=== PATIENT | female | born 1980 | race African-American/Black ===

== ENCOUNTER 2024-09-02 11:16 | Emergency (ER) | payer OTHER, SELFPAY ==
[2024-09-02 11:33] VITALS: BP 134/93; PULSE 88; RESP 18; TEMP 36.7; O2SAT 99
[2024-09-02 12:01] LABS: BEDSIDEPREGUCG Negative (Negative)
[2024-09-02 12:18] LABS: Add Urine Microscopic? YES; Appearance Urine Cloudy (Clear); Glucose Urine UA 3+ mg/dL (Negative); Leukocyte Esterase Ur 1+ LEU/UL (Negative); Need Manual Microscopic Reviewed; Nitrate Urine Negative (Negative); Specific Grav Ur 1.017 (1.001-1.035)
--- NOTE | 2024-09-02 12:40 | ED.GENADULT ---
HPI - General Adult General Chief complaint: Urogenital-Female Stated complaint: kidney infection, I need IV antibiotics Time Seen by Provider: 09/02/24 12:05 History of Present Illness HPI narrative: 44-year-old female presenting to the emergency department for evaluation for urinary symptoms. 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 Patient does have history pyelonephritis. Patient reports of last few days she has had urinary symptoms with low-grade fever. Patient did present to the urgent care and was referred to the emergency department for IV antibiotics. Related Data Allergies Allergy/AdvReac Type Severity Reaction Status Date / Time adhesive tape Allergy Rash Verified 09/02/24 12:12 latex Allergy Rash Verified 09/02/24 12:12 Review of Systems Review of Systems: All systems reviewed & are unremarkable except as noted in HPI and below Exam Narrative: APPEARANCE: Well appearing, no pain, no distress, well-nourished. HEAD: normocephalic, atraumatic. EYES: PERRLA/EOMI, conjunctivae clear. NOSE: Normal no drainage EARS:TMS clear with good light reflex. THROAT: Pharynx clear, no exudate. NECK: Supple. No adenopathy, no masses. RESPIRATORY: Airway patent, respirations nonlabored. Clear to auscultation bilaterally, no rales, rhonchi, wheezing. CARDIOVASCULAR: Regular rate and rhythm without murmurs rubs or gallops. ABDOMINAL: Bilateral CVA tenderness MUSCULOSKELETAL: Moves all extremities. Strength/ROM intact, No edema, No calf tenderness. NEURO: Alert. Cranial nerves II through XII intact. Good gait. Good coordination SKIN: Warm, dry. Normal Color PSYCHIATRIC: Normal affect/mood. Course Vital Signs Vital signs: Vital Signs Temperature 98.0 F 09/02/24 11:33 Pulse Rate 88 09/02/24 11:33 Respiratory Rate 18 09/02/24 11:33 Blood Pressure 134/93 H 09/02/24 11:33 Pulse Oximetry 99 09/02/24 11:33 Oxygen Delivery Room Air 09/02/24 11:33 Temperature 98.0 F 09/02/24 11:33 Pulse Rate 91 09/02/24 15:27 Respiratory Rate 16 09/02/24 15:27 Blood Pressure 117/68 09/02/24 15:27 Pulse Oximetry 100 09/02/24 15:27 Oxygen Delivery Room Air 09/02/24 11:33 Medical Decision Making [facility] Narrative Medical decision making narrative: 44-year-old female presents emergency department for evaluation for urinary symptoms. Urine is significant for urinary tract infection. Patient is currently afebrile with no leukocytosis hemoglobin of 10.9, no baseline values are to follow. Patient is not have an elevated lactic acid. Patient was treated with a L of lactated Ringer's along with 1 g of IV Rocephin. Patient does not appear to have pyelonephritis. Patient will be discharged home with p.o. antibiotics. Differential Diagnosis Differential Diagnosis: Urinary tract infection, pyelonephritis, dysuria Vital Signs Vital Signs: Vital Signs Temperature 98.0 F 09/02/24 11:33 Pulse Rate 88 09/02/24 11:33 Respiratory Rate 18 09/02/24 11:33 Blood Pressure 134/93 H 09/02/24 11:33 Pulse Oximetry 99 09/02/24 11:33 Oxygen Delivery Room Air 09/02/24 11:33 Temperature 98.0 F 09/02/24 11:33 Pulse Rate 91 09/02/24 15:27 Respiratory Rate 16 09/02/24 15:27 Blood Pressure 117/68 09/02/24 15:27 Pulse Oximetry 100 09/02/24 15:27 Oxygen Delivery Room Air 09/02/24 11:33 Lab Data Lab results reviewed: Yes I reviewed the patient's lab results. 09/02/24 14:10 09/02/24 14:10 Labs: Lab Results 09/02/24 09/02/24 09/02/24 Range/Units 11:56 11:58 14:10 WBC 8.0 (4.5-10.0) K/mm3 RBC 3.72 L (4.2-5.4) M/mm3 Hgb 10.9 L (12.0-15.0) g/dL Hct 32.2 L (37.0-47.0) % MCV 86.6 (80-100) fl MCH 29.3 (26-34) pg MCHC 33.9 (32-36) g/dl RDW 12.5 (11.5-14.5) % Plt Count 176 (150-375) k/mm3 MPV 10.4 (7.4-10.4) fl Immature Gran % (Auto) 0.5 (0-0.5) % Neut % (Auto) 58.0 (45.5-73.1) % Lymph % (Auto) 25.1 (18.3-44.2) % Larimer % (Auto) 15.2 H (2.6-8.5) % Eos % (Auto) 0.8 (0-4.4) % Baso % (Auto) 0.4 (0.2-1.2) % Lymph # (Auto) 2.00 (0.9-3.2) K/mm3 Larimer # (Auto) 1.2 H (0.1-0.6) K/mm3 Eos # (Auto) 0.1 (0-0.3) K/mm3 Baso # (Auto) 0.0 (0.0-0.1) K/mm3 Abs Immat Gran (auto) 0.04 H (0.00-0.031) K/mm3 Absolute Neuts (auto) 4.6 (1.3-6.7) K/mm3 Absolute Nucleated RBC 0.000 (0.0-0.012) K/mm3 Nucleated RBC % 0.0 (0.0-0.2) % Sodium 129 L (137-145) mmol/L Potassium 3.6 (3.4-5.0) mmol/L Chloride 100 (98-107) mmol/L Carbon Dioxide 24 (22-30) mmol/L Anion Gap 5 (4-12) mmol/L BUN 16 (7-17) mg/dL Creatinine 1.23 H (0.7-1.0) mg/dL Estim Creat Clear Calc 60 ml/min Estimated GFR 47 L (59 - ) Glucose 122 H (65-110) mg/dL Lactic Acid 1.4 (0.7-2.0) mmol/L Calcium 8.4 (8.4-10.2) mg/dL Total Bilirubin 0.3 (0.2-1.3) mg/dL AST 30 (14-36) U/L ALT 47 H (6-35) U/L Alkaline Phosphatase 193 H (38-126) U/L Total Protein 6.6 (6.3-8.2) g/dL Albumin 3.1 L (3.5-5.1) g/dL Urine Color Yellow (Yellow) Urine Appearance Cloudy H (Clear) Urine pH 5.5 (5.0-9.0) Ur Specific Shipman 1.017 (1.001-1.035) Urine Protein 4+ H (Negative) mg/dL Urine Glucose (UA) 3+ H (Negative) mg/dL Urine Ketones 1+ H (Negative) mg/dL Ur Blood (Man) 2+ H (Negative) Urine Nitrate Negative (Negative) Urine Bilirubin Negative (Negative) Urine Urobilinogen 1.0 (<2.0) mg/dL Add Ur Microanalysis Reviewed Leukocyte Esterase Rfl 1+ H (Negative) KEKE/UL Urine RBC 11-20 H (0-2) /hpf Urine WBC 51-100 H (0-3) /hpf Urine WBC Clumps Present H (None) /HPF Ur Squamous Epith Cells Moderate (Few) /hpf Urine Bacteria None seen /hpf Urine Casts 11-20 Hyaline Casts Present (None) /lpf POC Urine HCG, Qual Negative (Negative) Discharge Plan Discharge Clinical Impression: Urinary tract infection Patient Disposition: Home Condition: Stable Instructions: Antibiotic Form, Urinary Tract Infection in Women (ED) Additional Instructions: Antibiotic as directed until completed. Zofran as needed for nausea control. Have close follow-up with your primary care physician. If you have any worsening symptoms then please call or return to the emergency department. Patient Language: Italian Prescriptions: New phenazopyridine [Pyridium] 100 mg tablet 100 mg PO TID PRN (Reason: pain) Qty: 6 0RF cephalexin 500 mg capsule 500 mg PO Q6H 7 Days Qty: 28 0RF ondansetron 4 mg tablet,disintegrating 4 mg PO Q8H PRN (Reason: nausea and vomiting) Qty: 14 0RF Follow-up/Referrals: PHYSICIAN NOT ON STAFF,NONSTAFF [Non-Staff] -
--- OUTSIDE RECORDS SUMMARY | 2024-09-02 12:58 | XMS_ITS | Referral Summary ---
Author Organization [facility] Address [address] [place] [id number] Care Team Providers Care Skeiner Name Role Phone Unknown, Notinfile Primary Care Provider Unavail able Encounters Date Type Department Care Team Description 09/02/2024 12:30 PM CDT Office Visit [facility] at [address] [phone] Marilyn Browne NP Right flank pain (Primary Dx); History of pyelonephritis; Fever, unspecified fever cause from Last 3 Months Allergies Active Allergy Reactions Criticality Noted Date Comments Adhesive Other (See comments),Rash Medium 05/31/2016 Reaction: Adhesive Tape-Silicones Gel Other (See comments) 09/02/2024 Reaction: Hydrocodone-Acetaminophen Latex Medications aspirin 81 mg enteric coated tablet 7 Active insulin aspart (NovoLOG) 100 unit/mL vial for injection Inject 10 units 3 times a day by subcutaneous route before meals for 90 days. Active insulin glargine (TOUJEO) 300 unit/mL (1.5 mL) pen for injection Inject 25 units every day by subcutaneous route at bedtime for 90 days. Active insulin lispro (HumaLOG, ADMELOG) 100 unit/mL vial for injection Inject 20 Units under the skin 3 (three) times a day with meals Active metoprolol (LOPRESSOR) 100 mg tablet Take 1 tablet (100 mg total) by mouth 2 (two) times a day 5 Active phentermine (ADIPEX-P) 37.5 mg tablet Take 1 tablet (37.5 mg total) by mouth daily before breakfast 4 Active hydroCHLOROthia zide (HYDRODIURIL) 25 mg tablet Take 1 tablet (25 mg total) by mouth daily 3 Active Active Problems Problem Noted Date Diagnosed Date Diabetes mellitus during , antepartum 0 09/02/2024 Bilateral lower extremity edema 06/25/2024 Elevated cholesterol 06/07/2023 Edema 05/10/2022 Severe obesity (BMI 35.0-39.9) with comorbidity 04/28/2020 Obesity (BMI 30.0-34.9) 01/31/2019 History of acute anterior wall UT 12/13/2016 Inappropriate sinus tachycardia 12/13/2016 Ischemic cardiomyopathy 12/13/2016 SOB (shortness of breath) 12/13/2016 IUD (intrauterine device) in place 12/12/2016 Overview (09/02/2024): Mirena Placed 12/12/16 Chronic systolic congestive heart failure 2016 Sepsis due to Escherichia coli 10/26/2016 Overview (09/02/2024): source Elevated troponin 10/25/2016 Pericardial effusion, acute 10/25/2016 Spontaneous dissection of coronary artery 2016 Positive GBS test 09/23/2016 with uncertain viability 017 Herpes simplex virus (HSV) infection 02/15/2016 Sickle cell trait 02/15/2016 Normal 02/15/2016 Vitamin D deficiency disease 08/03/2012 Unspecified inflammation of eyelid 02/13/2012 Diabetes mellitus 02/13/2012 Social History Tobacco Use Types Packs/Day Years Used Date Smoking Tobacco: Never Comments Unknown Sex and Gender Information Value Date Recorded Sex Assigned at Not on file 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 Gender Identity Not on file Sexual Orientation Not on file Last Filed Vital Signs Vital Sign Reading Time Taken Comments Blood Pressure 133/74 09/02/2024 10:36 AM CDT Pulse - - Temperature 36.8 C (98.3 F) 09/02/2024 10:36 AM CDT Respiratory Rate 21 09/02/2024 10:36 AM CDT Oxygen Saturation 99% 09/02/2024 10:36 AM CDT Inhaled Oxygen Concentration - - Weight 90.7 kg (200 lb) 09/02/2024 10:36 AM CDT Height 167.6 cm (5' 6) 09/02/2024 10:36 AM CDT Body Mass Index 32.28 09/02/2024 10:36 AM CDT Plan of Treatment Not on file Insurance [employer] Address: [facility] [id number] [phone] Care Teams Skeiner Relationship Specialty Start Date End Date Unknown, Notinfile PCP - General 09/02/24
--- OUTSIDE RECORDS SUMMARY | 2024-09-02 12:58 | XMS_ITS | Encounter Summary ---
Author Organization [facility] Healthcare Address [address] [place] [address] Care Team Providers Care Emu Farmer Name Role Phone Unknown, Notinfile Primary Care Provider Unavail able Reason for Visit * Reason Comments Urinary Problem Patient here for c/o possible UTI or kidney infection Encounter Details Date Type Department Care Team (Late st Contact Info) Description 09/02/2024 12:30 PM CDT Office Visit [facility] at [address] [phone] Marilyn Browne NP [address] [place] [address] [address] [place], [place] [id number] Right flank pain (Primary Dx); History of pyelonephritis; Fever, unspecified fever cause Social History Tobacco Use Types Packs/Day Years Used Date Smoking Tobacco: Never Comments Unknown Sex and Gender Information Value Date Recorded Sex Assigned at Not on file 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 hydroCHLOROthiaz tyler (HYDRODIURIL) 25 mg tablet Take 1 tablet (25 mg total) by mouth daily 05/03/2022 phentermine (ADIPEX-P) 37.5 mg tablet Take 1 tablet (37.5 mg total) by mouth daily before breakfast 05/23/2023 metoprolol (LOPRESSOR) 100 mg tablet Take 1 tablet (100 mg total) by mouth 2 (two) times a day 08/19/2024 insulin lispro (HumaLOG, ADMELOG) 100 unit/mL vial for injection Inject 20 Units under the skin 3 (three) times a day with meals insulin glargine (TOUJEO) 300 unit/mL (1.5 mL) pen for injection Inject 25 units every day by subcutaneous route at bedtime for 90 days. insulin aspart (NovoLOG) 100 unit/mL vial for injection Inject 10 units 3 times a day by subcutaneous route before meals for 90 days. aspirin 81 mg enteric coated tablet 10/29/2016 added in this encounter Care Teams Emu Farmer Relationship Specialty Start Date End Date Unknown, Notinfile PCP - General 09/02/24 documented as of this encounter
--- OUTSIDE RECORDS SUMMARY | 2024-09-02 12:58 | XMS_ITS | Clinical Summary ---
Author Organization [facility] Address [address] [place] [address] Phone Care Team Providers Care Museum Guide Name Role Phone Adrian Hadley MD Primary Care Provider [phone] Allergies Active Allergy Reactions Criticality Noted Date Comments Adhesive Rash Low 05/31/2016 Hydrocodone-Acetaminophen Unknown 02/19/2019 Latex Rash Low 05/31/2016 Medications lancets (ULTRA THIN II LANCETS) 30 gauge 1 Each by Misc.(Non-Drug; Combo Route) route daily Lancet ultra 2 per patient request. 30 Each 6 10/01/19 17 Active insulin detemir (LEVEMIR) 100 unit/mL pen syringe Inject 50 Units by subcutaneous injection 2 times daily. Active insulin lispro (HumaLOG) 100 unit/mL vial Inject 20 Units by subcutaneous injection 3 times daily with meals. Active aspirin (ECOTRIN EC) 81 mg Tablet, Delayed Release (E.C.) Take 1 Tablet (81 mg) by mouth daily. 30 Tablet 7 3:01 PM CDT 10/30/19 17 Active hydroCHLOROthi azide 25 mg tabletIndicati ons:Edema, unspecified type Take 1 Tablet (25 mg) by mouth daily. 90 Tablet 3 05/04/19 23 Active Additional Information Patient taking differently:25 mg Oral DAILY,As needed, Reported on 06/18/2024 phentermine (ADIPEX P) 37.5 mg tablet Take 37.5 mg by mouth daily before breakfast. 05/23/19 24 Active metoprolol tartrate (LOPRESSOR) 100 mg tabletIndicati ons:Inappropri ate sinus tachycardia TAKE 1 TABLET(100 MG) BY MOUTH TWICE DAILY 180 Tablet 1 08/20/19 25 Active metoprolol tartrate (LOPRESSOR) 100 mg tabletIndicati ons:Inappropri ate sinus tachycardia TAKE 1 TABLET(100 MG) BY MOUTH TWICE DAILY 180 Tablet 05/25/19 25 025 Discontinued Active Problems Patient Care Coordination No te Formatting of this note migh t be different from the original. West Morgan MD--Process Cheese Cooker ([facility] @ ) Problem Noted Date Diagnosed Date Bilateral lower extremity edema 06/25/2024 Elevated cholesterol 06/07/2023 Edema 05/10/2022 Severe obesity (BMI 35.0-39.9) with comorbidity 04/28/2020 Obesity (BMI 30.0-34.9) 01/31/2019 SOB (shortness of breath) 12/13/2016 Inappropriate sinus tachycardia 12/13/2016 History of acute anterior wall [place] 12/13/2016 Ischemic cardiomyopathy 12/13/2016 IUD (intrauterine device) in place 12/12/2016 Overview (12/12/2016): Mirena Placed 12/12/16 Chronic systolic congestive heart failure 2016 Sepsis due to Escherichia coli 10/26/2016 Overview (10/26/2016): source Elevated troponin 10/25/2016 Pericardial effusion, acute 10/25/2016 Spontaneous dissection of coronary artery 2016 RLTCS; DM2, mild preE, Girl 09/28/2016 Positive GBS test 09/23/2016 Diabetes mellitus during , antepartum Resolved Problems Problem Noted Date Diagnosed Date Resolved Date Acute respiratory failure with hypoxia 10/25/2016 10/27/2016 Lactic acidosis 10/25/2016 10/27/2016 Encounters Date Type Department Care Team Description 08/21/2024 External Device Data STL ABSTRACTION Provider, Abstract 08/21/2024 External Device Data STL ABSTRACTION Provider, Abstract 08/19/2024 Refill [facility] [address] [place] [address] West Morgan MD Inappropriate sinus tachycardia 07/30/2024 External Device Data STL ABSTRACTION Provider, Abstract 07/23/2024 External Device Data STL ABSTRACTION Provider, Abstract 07/09/2024 External Device Data STL ABSTRACTION Provider, Abstract 06/28/2024 External Device Data STL ABSTRACTION Provider, Abstract 06/18/2024 1:00 PM CDT Office Visit [facility] [address] [place] [address] West Morgan MD Inappropriate sinus tachycardia (Primary Dx); Bilateral lower extremity edema; History of acute anterior wall MN; Elevated cholesterol; Spontaneous dissection of coronary artery; Ischemic cardiomyopathy from Last 3 Months Immunizations Immunization Administration Dates Next Due (ADACEL/BOOSTRIX)(10 YR UP) TDAP VACCINE, 0.5ML, IM 07/26/2016 Influenza Seasonal Unspecified Formulation IM Family History Medical History Relation Name Comments Diabetes Brother 1 Kidney Disease Brother 1 Sickle Cell Anemia Brother 2 Diabetes Father Sickle Cell Trait Father Kidney Disease Mother Sickle Cell Anemia Mother Unknown Sister Relation Name Status Comments Brother 1 Brother 2 Alive Father Alive Mother Sister Alive Social History Tobacco Use Types Packs/Day Years Used Date Smoking Tobacco: Never Smokeless Tobacco: Never Alcohol Use Standard Drinks/Week Comments Yes 0 (1 standard drink = 0.6 oz pur e alcohol) socially prior to Comments No Sex and Gender Information Value Date Recorded Sex Assigned at Not on file Legal Sex Female 4:[address] REPORTER Gender Identity Not on file Sexual Orientation Not on file Last Filed Vital Signs Vital Sign Reading Time Taken Comments Blood Pressure 112/72 06/18/2024 12:53 PM CDT Pulse 78 06/18/2024 12:53 PM CDT Temperature 35.7 C (96.3 F) 10/27/2020 1:26 PM CDT Respiratory Rate 16 03/30/2017 11:[address] REPORTER Oxygen Saturation 98% 06/18/2024 12:53 PM CDT Inhaled Oxygen Concentration - - Weight 90.5 kg (199 lb 9.6 oz) 06/18/2024 12:53 PM CDT Height 168.9 cm (5' 6.5) 06/18/2024 12:51 PM CD T Body Mass Index 31.73 06/18/2024 12:51 PM CDT Plan of Treatment Upcoming Encounters Date Type Department Care Team (Late st Contact Info) Description 12/19/2024 1:[address] REPORTER Office Visit [facility] [address] [place] [phone] West Morgan MD [address] [place] [address] Health Maintenance Due Date Last Done Comments HPV VACCINES (1 - 3-dose series) 05/15/1994 DIABETES ANNUAL FOOT EXAM 05/15/1997 DIABETES ANNUAL RETINAL EXAM 05/15/1997 DIABETES MICROALBUMIN ANNUAL SCREEN 05/15/1997 LDL CHOLESTEROL ANNUAL 05/15/1997 HEPATITIS B VACCINES (1 of 3 - 19+ 3-dose series) 05/15/1998 DIABETES HBA1C Q 6 MONTHS 04/24/20172016, 07/28/2016, 05/10/2016 BREAST CANCER SCREENING 2019 PAP SMEAR 12/25/2021 12/25/2018, 03/2017, 05/08/2017 CERVICAL CANCER SCREENING 12/26/2023 HPV/Cotest (21-29) 12/26/2023 12/25/2018, 05/08/2017 HPV/Cotest (30-65) 12/26/2023 12/25/2018, 05/08/2017 COLORECTAL SCREENING 05/15/2024 Colorectal Cancer Screening 05/15/2024 FIT-DNA Q 3 years 05/15/2024 FIT/FOBT Q 1 year 05/15/2024 Flex Sig/CT Colonography Q 5 years 05/15/2024 INFLUENZA VACCINE (#1) 2024 01/19/2016 DTAP/TDAP/TD VACCINES (2 - T d or Tdap) 07/26/2026 07/26/2016 Procedures Procedure Name Priority Date/Time Associated Diagnosis Comments CERV/VAG CYTO AGE BASED SCREEN PAP Routine 12/25/2018 12:[address] REPORTER Well female exam with routine gynecological exam HEMOGLOBIN A1C Stat 10/25/2016 8:32 AM CDT from Last 3 Months or Most Recently Relevant to Health Maintenance Results * (ABNORMAL) CERV/VAG CYTO AGE BASED SCREEN PAP (12/25/2018 12:[address] REPORTER) COMMENT (PAP): SEE COMMENT 9 3:[address] REPORTER [facility] Comment: This order for age-based cervical cancer and STI screening follows ACOG guidelines(PB 168, 140, QAH702). See individual assays for performing site location. CLINICAL INFORMATION SCREENING 12/28/2018 3:[address] REPORTER [facility] LAST MENSTRUAL PERIOD INFORMATION NOT PROVIDED 12/28/2018 3:[address] REPORTER [facility] PREV PAP: [id number] NIL 12/28/2018 3:[address] REPORTER [facility] PREV BX: INFORMATION NOT PROVIDED 12/28/2018 3:[address] REPORTER [facility] SOURCE Endocervix 12/28/2018 3:[address] REPORTER [facility] ADEQUACY: SEE COMMENT 12/28/2018 3:[address] REPORTER [facility] Comment: Satisfactory for evaluation. Endocervical/transformation zone component absent. GENERAL CATEGORIZATION: EPITHELIAL CELL ABNORMALITY(A) 12/28/2018 3:[address] REPORTER [facility] PAP INTERP Atypical Squamous Cells of Undetermined Significance (ASC-US)(A) 12/28/2018 3:[address] REPORTER [facility] COMMENT SEE COMMENT 12/28/2018 3:[address] REPORTER [facility] Comment: This Pap test has been evaluated with computer assisted technology. Suggest clinical correlation and follow-up as clinically appropriate WIRE MESH GATE ASSEMBLER: SEE COMMENT 2018 3:[address] REPORTER [facility] Comment: LVA, CT(ASCP) CT screening location: [place] [address] [place] [address] PATHOLOGIST SEE COMMENT 12/28/2018 3:[address] REPORTER [facility] Comment: Mario Wilburn M.D., Board Certified in Anatomic Pathology and Cytopathology. (electronic signature) EXPLANATORY NOTE SEE COMMENT 019 3:[address] REPORTER [facility] Comment: EXPLANATORY NOTE: The Pap is a screening test for cervical cancer. It is not a diagnostic test and is subject to false negative and false positive results. It is most reliable when a satisfactory sample, regularly obtained, is submitted with relevant clinical findings and history, and when the Pap result is evaluated along with historic and current clinical information. HPV E6/E7 Detected(A) Not Detected 12/28/2018 3:[address] REPORTER [facility] Comment: This test was performed using the APTIMA HPV Assay ([employer] This assay detects E6/E7 viral messenger RNA (mRNA) from 14 high-risk HPV types (16,18,31,33,35,39,45,51,52,56,58,59,66,68). The analytical performance characteristics of this assay have been determined by [employer]. The modifications have not been cleared or approved by the FDA. This assay has been validated pursuant to the CLIA regulations and is used for clinical purposes. Genital SWAB OF ENDOCERVIX / Unknown Collection / Unknown 12/25/2018 12:[address] REPORTER 12/25/2018 2:[address] REPORTER Narrative [facility] - 12/28/2018 3:[address] REPORTER Performing Organization Information: Site ID: [place] [facility]: [facility] Address: [address] [place] [address] Director: Dave Gore D.O., MPH Site ID: [place] Name: [facility] Address: [address] [place] [address] Director: Sj Sinha us Lucia Sharp DO PATHOLOGY/CYTOLOGY ORDERABLES Fi nal Result Performing Organization Address City/State/[facility] Co de Phone Number [facility] [phone] * (ABNORMAL) HEMOGLOBIN A1C (10/25/2016 8:32 AM CDT) HEMOGLOBIN A1C 6.6(H) 4.0 - 6.0 % 10/25/2016 9:[address] [facility] [employer] [facility] Comment:Note: Effective as o f 02/27/2015 a new methodology, Turbidimetric inhibition immunoassay (TINIA),has been implemented. EST. AVG GLUCOSE, A1C 143 mg/dL 10/25/2016 9:[address] [facility] [employer] [facility] Blood Venipuncture / Unknown 10/25/2016 8:32 AM CDT 10/25/2016 8:48 AM CDT us Shivani Navarro MD CHEMISTRY ORDERABLES Final Resul t [facility]# [id number] [address] [place] [address] from Last 3 Months or Most Recently Relevant to Health Maintenance Insurance RX [facility] [employer] [facility] OPEN ACCESS HMO Advance Directives For more information, please contact: [phone] * Full Code (Latest Code Status on File) Date Activated Date Inactivated Comments 10/25/2016 4:10 PM 10/29/2016 5:25 PM * Full Code Date Activated Date Inactivated Comments 10/25/2016 10:55 AM 10/25/2016 4:10 PM * Full Code Date Activated Date Inactivated Comments 09/26/2016 6:37 PM 09/30/2016 1:09 PM * Full Code Date Activated Date Inactivated Comments 09/26/2016 1:10 PM 09/26/2016 6:37 PM * Full Code Date Activated Date Inactivated Comments 08/27/2016 7:02 AM 08/27/2016 11:18 AM Care Teams Museum Guide Relationship Specialty Start Date End Date Adrian Hadley MD [address] [place] [address] PCP - General Family Practice 03/29/16
--- OUTSIDE RECORDS SUMMARY | 2024-09-02 12:58 | XMS_ITS | Data Portability ---
[facility] Organization [facility] Address [address] [place] [address] Assessment No assessment recorded. Plan of Treatment Reminders Order Date Submit Date Provider Last Modified By Organization Details Last Modified Time Details Appointments None recorded. Lab HbA1c (hemoglobi n A1c), blood 2016 017 [email or web address] In-Office Order, Internal Use Only DO Not Attach Compendium DO Not Attach Compendium, Do Not Delete/merge, [id number] 11:49:04 Referral None recorded. Procedures None recorded. Surgeries None recorded. Imaging None recorded. Medication Orders Bactrim DS 800 mg-160 mg tablet 2018 019 INTERFACE [facility]97, [address], [place], [phone], 9 19:16:49 Diflucan 150 mg tablet 2018 019 INTERFACE [facility] #37864, [address], [place], [id number], 9 19:16:49 hydrocodon e 10 mg-acetami nophen 325 mg tablet [email or web address] [facility], [address], [place], [phone], 9 19:21:49 [place] 10 mg-325 mg tablet 2016 017 [email or web address], [address], [place], [id number], 7 16:00:20 [employer] SoloStar U-300 Insulin 300 unit/mL (1.5 mL) subcutaneo us pen 2015 016 INTERFACE [facility]24202, [address] [place], [place], [id number], 6 19:07:31 Novolog U-100 Insulin aspart 100 unit/mL subcutaneo us solution 2015 016 [email or web address] [facility] #30310, [address] [place], [place], [id number], 6 19:07:25 Patient TargetsNo targets recorded. Patient Instructions Encounter Date Encounter Id Patient Instructions Last Modified By Organization Details Last Modified Time 11/15/2016 [id number] heart failure: care instructions [email or web address] Not available 11/15/2016 13:18:27 learning about heart failure [email or web address] Not available 11/15/2016 13:18:27 Reason for Referral None Reported. Results Created Date Observation Date Name Description Value Unit Range Abnormal Flag Note LastModifiedBy Organization Detail LastModifiedTime 11/16/19 17 11/15/2016 HbA1c (hemo globi n A1c), blood HbA1c 7.8 Not Available In-Office Order Internal Use Only DO Not Attach Compendium DO Not Attach Compendium, Do Not Delete/merge, [id number] 11/15/2016 11:48:44 Result Notes None recorded. Problems Name Problem SNOMED Code Status Onset Date Resolution Date Notes Provider Name and Address Organization Details Recorded Time Diabetes mellitus 85680014 Active Adrian Hadley MD Attn: Accounting ,[address] [facility] [facility], [place], [address] , [facility] 6 19:07:24 Problem Notes None recorded. Medical Equipment None Reported. Allergies No known drug allergies Medications Name Sig Start Date Stop Date Status Note LastModified by Organization Details LastModified Time metoprolol tartrate 100 mg tablet TAKE 1 TABLET BY MOUTH TWICE DAILY active Not Available Not Available No t Available cephalexin 250 mg capsule active Not Available Not Available Not Available Diflucan 150 mg tablet Take 1 tablet every 72 hours by oral route for 1 day. 2018 active Not Available Not Available Not Avai lable clopidogrel 75 mg tablet active Not Available Not Available Not Available Aspir-Low 81 mg tablet,delay ed release active Not Available Not Available N ot Available hydrocodone 10 mg-acetamino phen 325 mg tablet Take 1 tablet 3 times a day by oral route as needed for 14 days. 2018 active Not Available Not Available Not Avai lable oxycodone-ac etaminophen 5 mg-325 mg tablet active Not Available Not Available Not Available OneTouch Ultra Test strips TEST BLOOD SUGAR THREE TIMES DAILY active Not Available Not Available Not Available metoprolol tartrate 50 mg tablet active Not Available Not Available No t Available Novolog U-100 Insulin aspart 100 unit/mL subcutaneous solution Inject 10 units 3 times a day by subcutaneou s route before meals for 90 days. active Not Available Not Available No t Available ibuprofen 600 mg tablet active Not Available Not Available Not Available oxycodone 5 mg tablet active Not Available Not Available No t Available Bactrim DS 800 mg-160 mg tablet Take 1 tablet every 12 hours by oral route for 10 days. 2018 active Not Available Not Available Not Avai lable Novolog FlexPen U-100 Insulin aspart 100 unit/mL (3 mL) subcutaneous active Not Available Not Available Not Available nitrofuranto in monohydrate/ macrocrystal s 100 mg capsule active Not Available Not Available Not Available OneTouch Ultra2 Meter kit active Not Available Not Available Not Available BD Ultra-Fine Short Pen Needle 31 gauge x 5/16 active Not Available Not Available Not Available OneTouch Delica Lancets 30 gauge active Not Available Not Available Not Available Levemir FlexTouch U-100 Insulin 100 unit/mL (3 mL) subcutaneous pen active Not Available Not Available Not Available [employer] SoloStar U-300 Insulin 300 unit/mL (1.5 mL) subcutaneous pen Inject 25 units every day by subcutaneou s route at bedtime for 90 days. active Not Available Not Available No t Available Vitals Date Recorded Oxygen saturation Oxygen saturation in Arterial blood by Pulse oximetry Heart rate Respiratory rate Body temperature Body weight Body height Body mass index (BMI) Systolic And Diastolic Provider Name and Address Organization Details Last Updated DateTime 6 99 % 99 % 93 /min 18 /min 98.9 [degF] 42301.5 78304 g 167.64 cm 31.9 kg/m2 98/62 mm[Hg] Mackenzie Chacon MA [facility] 6 18:08:01 Date Recorded Body height Body mass index (BMI) Body weight Oxygen saturation Oxygen saturation in Arterial blood by Pulse oximetry Heart rate Respiratory rate Body temperature Systolic And Diastolic Provider Name and Address Organization Details Last Updated DateTime 7 167.64 cm 34.9 kg/m2 40335.9 5 g 98 % 98 % 94 /min 18 /min 98.8 [degF] 110/70 mm[Hg] Femi Mendez [facility] 7 11:42:23 Date Recorded Body height Body mass index (BMI) Body weight Oxygen saturation Oxygen saturation in Arterial blood by Pulse oximetry Heart rate Respiratory rate Body temperature Systolic And Diastolic Provider Name and Address Organization Details Last Updated DateTime 9 167.64 cm 35 kg/m2 64483.5 4 g 98 % 98 % 78 /min 18 /min 99.06 [degF] 130/80 mm[Hg] Junior Mccabe [facility] 9 18:38:04 Social History Question Answer Notes LastModified by Organizat ion Details LastModified Time Tobacco Smoking Status Never Smoker Indira Mendez [facility] 11/15/2016 11:43:43 What Was The Date Of Your Most Recent Tobacco Screening? 11/15/2016 Information n ot available 08/30/2018 Sex: Unknown Functional Status None recorded. Mental Status None recorded. Family History Nothing Reported. Medical History Condition Response Diabetes Y Gynecological HistoryNo gynecological history recorded. Obstetrics History GPAL:G 0 P 0 0 0 0 Past Encounters Encounter ID Performer Location Encounter Start Date Encounter Closed Date Diagnosis/Indication Diagnosis SNOMED-CT Code Diagnosis ICD10 Code Diagnosis Note [id number] Adrian Hadley MD [address] [address] 06/09/2015 17:30:34 06/18/2015 03:48:13 Diabetes mellitus 36727131 E11.9 meds and follow up... [id number] Adrian Hadley MD [address] [address] 11/15/2016 11:22:47 11/15/2016 16:21:14 Diabetes mellitus 38336616 E11.9 levemir 12u/21u... .. Congestive heart failure 77913064 I50.9 had SCAD spontaneou s coronary artery dissection ... sees cardiology ... metoprolol 75 mg BID... had procedures in ... had [place]... [id number] Adrian Hadley MD [address] [address] 11/27/2018 18:07:28 11/28/2018 09:22:53 Abscess 919201558 L02.91 meds and follow up... topical antibiotic s/oral antibiotic Diabetes mellitus 295754 09 E11.9 levemir 12u/21u... .. Health Concerns Section Related Observation LastModified by Organization Detai ls LastModified Time None Recorded Concern Status LastModified by Organization Details LastModified Time None Recorded Advance Directives Directive None Recorded Payers Insurance Date Sequence Insurance Name Policy Number Policy Guardado Covered Member ID Guardado Member ID Guarantor Name 11/27/2018 1 [employer] [id number] Demecia Mondragon [id number] Demeicia Mondragon OBGyn Episode No OBEpisode recorded.
--- OUTSIDE RECORDS SUMMARY | 2024-09-02 12:58 | XMS_ITS | Clinical Summary ---
Author Organization [facility] Address [address] [place] [address] Care Team Providers Care Clerk Stenographer Name Role Phone Unknown, Notinfile Primary Care Provider Unavail able Allergies Active Allergy Reactions Criticality Noted Date [...] 30.0-34.9) 01/31/2019 History of acute anterior wall [place] 12/13/2016 Inappropriate sinus tachycardia 12/13/2016 Ischemic cardiomyopathy [...] inflammation of eyelid 02/13/2012 Diabetes mellitus 02/13/2012 Encounters Date Type Department Care Team Description 09/02/2024 12:30 PM CDT Office Visit [facility] at [address] [address] Marilyn Browne NP Right flank pain (Primary Dx); History of pyelonephritis; Fever, unspecified fever cause from Last 3 Months Surgical History Surgery Date Site/Laterality Comments [place] DELIVERY ONLY Section Low Transverse - (Added by TW Conv) [place] CHOLECYSTECTOMY Cholecystectomy - (Added by TW Conv) Medical History Medical History Date Comments Personal history of other en docrine, nutritional and metabolic disease History of type 2 di abetes mellitus - (Added by TW Conv) Family History Medical History Relation Name Comments Diabetes Father Diabetes Mellit us - (Added by TW Conv) Sickle cell trait Father Family his tory of sickle cell trait - (Added by TW Conv) Lung cancer Maternal Grandfather Family history of lung cancer - (Added by TW Conv) Heart disease Mother Heart Disease - (Added by TW Conv) Hypertension Mother Hypertension - (Added by TW Conv) Kidney disease Mother Family histor y of kidney disease - (Added by TW Conv) Sickle cell anemia Mother Family hi story of sickle cell anemia - (Added by TW Conv) Relation Name Status Comments Father Maternal Grandfather Mother Social History Tobacco Use Types Packs/Day Years Used Date Smoking Tobacco: Never Comments Unknown Sex and Gender Information Value Date Recorded Sex Assigned at Not on file 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 Gender Identity Not on file Sexual Orientation Not on file Obstetrics History Last Filed Vital Signs Vital Sign Reading [...] 09/02/2024 10:36 AM CDT Plan of Treatment Health Maintenance Due Date Last Done Comments Albumin Creatinine Ratio, Urine 1979 Breast Cancer Screening-Mammogram 1979 Cervical Cancer Screening 1979 Colon Cancer Screening-Colonoscopy 1979 Depression Screening 1979 Hemoglobin A1C 1979 eGFR 1979 Dilated Eye Exam 1979 Foot Exam 1979 Varicella Vaccines (1 of 2 - 13+ 2-dose series) 1992 Hepatitis B Screening 05/15/1997 Regular Well Visit/Exam 18-64 05/15/1997 Pneumococcal vaccine <65 (1 of 2 - PCV) 05/15/1998 HPV Vaccines (1 - 3-dose SCDM series) 05/15/2006 Lipid Panel 02/14/2017 02/15/2016 Influenza Vaccine (#1) 2024 01/19/2016 DTaP/Tdap/Td Vaccine (2 - Td or Tdap) 07/26/2026 Hepatitis C Screening Completed 09/01/[address] [place] [address] [place] [address] [employer] Address: [facility] [id number] [place] [address] Care Teams Clerk Stenographer Relationship Specialty Start Date End Date Unknown, Notinfile PCP - General 09/02/24
[2024-09-02] MEDS: LACTATED RINGERS 1,000 ML 999 ML IV CONT (13:18)
[2024-09-02] MEDS: cefTRIAXone 1 GM in SODIUM CHLORIDE 0.9% IV 50 ML 100 ML IVPB (13:18)
[2024-09-02] MEDS: ONDANSETRON INJ 4 MG/2 ML VIAL IV PUSH (13:32)
[2024-09-02 14:17] LABS: Hematocrit 32.2 % (37.0-47.0); Hemoglobin 10.9 g/dL (12.0-15.0); Immature Granulocyte Percent A 0.5 % (0-0.5); Lymphocytes Absolute Auto 2.00 K/mm3 (0.9-3.2); Mean Corpuscular HGB Conc 33.9 g/dl (32-36); Mean Corpuscular Hemoglobin 29.3 pg (26-34); Mean Corpuscular Volume 86.6 fl (80-100); Nucleated Red Blood Cells Absolute Auto 0.000 K/mm3 (0.0-0.012); Nucleated Red Blood Cells Perc 0.0 % (0.0-0.2); Platelet Count Result 176 k/mm3 (150-375); Red Blood Count 3.72 M/mm3 (4.2-5.4); White Blood Count 8.0 K/mm3 (4.5-10.0)
[2024-09-02 14:49] LABS: Alanine Aminotransferase 47 U/L (6-35); Albumin Level 3.1 g/dL (3.5-5.1); Alkaline Phosphatase 193 U/L (38-126); Anion Gap 5 mmol/L (4-12); Aspartate Amino Transferase 30 U/L (14-36); Bilirubin,Total 0.3 mg/dL (0.2-1.3); Blood Urea Nitrogen 16 mg/dL (7-17); Calcium 8.4 mg/dL (8.4-10.2); Carbon Dioxide 24 mmol/L (22-30); Chloride 100 mmol/L (98-107); Estimated CRCL calculation 60 ml/min; Estimated Glomerular Filt Rate 47; Glucose 122 mg/dL (65-110); Potassium 3.6 mmol/L (3.4-5.0); Sodium 129 mmol/L (137-145); Total Protein 6.6 g/dL (6.3-8.2)
[2024-09-02 15:27] VITALS: BP 117/68; PULSE 91; RESP 16; O2SAT 100
== END 2024-09-02 15:28 | disposition home or self-care (01) ==
PROVIDERS: Emergency Provider Emergency Medicine
DX: N39.0 Urinary tract infection, site not specified (principal); I50.9 Heart failure, unspecified
CPT/HCPCS: 36415; 80053; 81001; 81025; 83605; 85025; 96365; 96375; 99284; J0696; J2405; J7120